=== PATIENT | female | born 1955 | race African-American/Black ===

== ENCOUNTER 2023-07-12 09:23 | Outpatient (CLI) | payer OTHER, SELFPAY ==
--- NOTE | 2023-07-12 10:15 | CRLHL7_ITS ---
For Patients: As a result of the Century Cures Act, medical imaging exams and procedure reports are released immediately into your electronic medical record. You may view this report before your referring provider. If you have questions, please contact your health care provider. Technique: Double-contrast esophagram performed after the uneventful administration of effervescent crystals and thick barium followed by thick barium. Fluoroscopy time 44 seconds. Indication: Glomus jugulare tumor, Cough, hoarseness Comparison: None. Findings: Esophagus: Normal morphology and motility. No stricture or mass. Gastroesophageal reflux: Slight reflux noted. No hernia. Impression: Swallowing mechanism is normal. No extrinsic mass effect. No aspiration. Mild spontaneous reflux. No inflammation. Dictated by Matt Jimenez MD @ 07/12/2023 11:25:28 AM (Electronically Signed)
== END 2023-07-12 09:24 | disposition home or self-care (01) ==
LOC: RAD 09:31
PROVIDERS: PCP Nurse Practitioner Family; Visit Provider Otolaryngology Otology & Neurotology
DX: D44.7 Neoplasm of uncertain behavior of aortic body and other paraganglia (principal)
CPT/HCPCS: 74221